=== PATIENT | male | born 1980 | race Caucasian/White ===

== ENCOUNTER 2016-12-14 11:28 | Emergency (ER) | payer SELFPAY ==
[~2016-12-14] VITALS: Ht 177.8 cm; Wt 68.0 kg
[~2016-12-14 11:28] MED LIST: NAPR-243 PO; TRAM-21 PO
--- OUTSIDE RECORDS SUMMARY | 2016-12-14 11:33 | XMS REPORT | Continuity Of Care Document ---
Author Author [facility] Organization [facility] Address [address] [facility] [place] [address] Phone Care Team Providers Care Double Bass Player Name Role Phone TORRIE KINNEY MD AT Results Lab Results Visit/Account #[id number] (July 21, 2016 1:09am - July 21, 2016 3:35am) Test Result Date/Time COMPLETE BLOOD COUNT WHITE BLOOD COUNT(4.0-11.0 10E3/UL) 7.3 10E3/UL July 21, 2016 1:10am RED BLOOD COUNT(4.50-5.90 10E6/UL) 4.71 10E6/UL July 21, 2016 1:10am HEMOGLOBIN(13.5-17.5 G/DL) 15.0 G/DL July 21, 2016 1:10am HEMATOCRIT(41.0-53.0 %) 43.9 % July 21, 2016 1:10am MEAN CORPUSCULAR VOLUME(82.0-100.0 FL) 93.2 FL July 21, 2016 1:10am MEAN CORPUSCULAR HEMOGLOBIN(26.0-34.0 PG) 31.8 PG July 21, 2016 1:10am MEAN CORPUSCULAR HGB CONC(31.5-36.5 G/DL) 34.2 G/DL July 21, 2016 1:10am RED CELL DISTRIBUTION WIDTH(11.5-14.5 %) 12.9 % July 21, 2016 1:10am 777-3: PLATELET COUNT(150-450 10E3/UL) 279 10E3/UL July 21, 2016 1:10am MEAN PLATELET VOLUME(8.2-12.4 FL) 10.0 FL July 21, 2016 1:10am NUCLEATED RBCS (AUTO)(0-0 %) 0 % July 21, 2016 1:10am COMPLETE METABOLIC PROFILE GLUCOSE(70-110 MG/DL) 106 MG/DL July 21, 2016 1:10am BLOOD UREA NITROGEN(6-20 MG/DL) 20 MG/DL July 21, 2016 1:10am CREATININE(0.50-1.20 MG/DL) 0.68 MG/DL July 21, 2016 1:10am EST GLOMERULAR FILTRATION RATE(Greater than or equal to 60) Greater than or equal to 60 Result Comments: If the patient is of -Turkmen descent/extraction multiply the eGFR value by 1.212 to obtain the actual eGFR. >=60 mg/dL Normal 30-59 mg/dL Moderate Kidney Disease 15-29 mg/dL Severe Kidney Disease <15 mg/dL Kidney Failure July 21, 2016 1:10am BUN CREATININE RATIO(10.0-20.0 RATIO) 29.0 RATIO July 21, 2016 1:10am SODIUM(135-145 MMOL/L) 137 MMOL/L July 21, 2016 1:10am POTASSIUM(3.6-5.0 MMOL/L) 4.0 MMOL/L July 21, 2016 1:10am CHLORIDE(101-111 MMOL/L) 104 MMOL/L July 21, 2016 1:10am CO2(21-31 MMOL/L) 22 MMOL/L July 21, 2016 1:10am ANION GAP(8-18) 15 July 21, 2016 1:10am OSMO CALCULATED(270.0-290.0) 276.9 July 21, 2016 1:10am CALCIUM(8.5-10.5 MG/DL) 9.1 MG/DL July 21, 2016 1:10am BILIRUBIN,TOTAL(0.1-1.2 MG/DL) 1.0 MG/DL July 21, 2016 1:10am ALKALINE PHOSPHATASE(42-121 IU/L) 77 IU/L July 21, 2016 1:10am ASPARTATE AMINO TRANSFERASE(10-42 IU/L) 41 IU/L July 21, 2016 1:10am ALANINE AMINOTRANSFERASE(10-60 IU/L) 21 IU/L July 21, 2016 1:10am TOTAL PROTEIN(6.4-8.2 G/DL) 8.0 G/DL July 21, 2016 1:10am ALBUMIN(3.5-5.5 G/DL) 4.5 G/DL July 21, 2016 1:10am GLOBULIN(2.4-3.6) 3.5 July 21, 2016 1:10am ALBUMIN/GLOBULIN RATIO(0.9-1.8 RATIO) 1.3 RATIO July 21, 2016 1:10am TOTAL CPK TOTAL CPK(22-269 IU/L) 682 IU/L July 21, 2016 1:10am ALCOHOL ALCOHOL(0.0-5.0 MG/DL) Less than 5.0 MG/DL July 21, 2016 1:10am Allergies and Adverse Reactions Allergies and Adverse Reactions Patient Unit Number: [id number] Agent Type Reaction Severity Status KETOROLAC Drug Allergy Unknown Unknown Active Problem List Problem List Patient Unit Number: [id number] Chronic Problems: Code/Condition Comments Documented Start Date Documented Resolved Date Code (s) 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 Avoid drug use or taking more medications than as directed. Return if symptoms worsen, if new symptoms develop, or for any other concerns. Vital Signs Vital Signs Visit/Account #[id number] (July 21, 2016 1:09am - July 21, 2016 3:35am) Sign First Result Last Result Code(s) Temperature in Fahrenheit Temperature (Fahrenheit): 98.4 [degF] On July 21, 2016 1:05am Temperature (Fahrenheit): 98.0 [degF] On July 21, 2016 3:30am 8310-5 Body Temperature Weight in Kilograms Weight (Kilograms): 66.4000 kg On July 21, 2016 1:05am 3141-9 Weight Measured Functional Status Functional and Cognitive Status No Functional Status Data Medications Inpatient/Ordered Medications - Medications administered during hospital visit Visit/Account #[id number] (July 21, 2016 1:09am - July 21, 2016 3:35am) Medication Route Sig/Schedule Precondition/Indication Comments/Instructions Codes IV Medication Carriers: NORMAL SALINE(SODIUM CHLORIDE) 1000 ML INJECTION Dose: 1000 ML INTRAVEN .Q1H (Rate: 1000 MLS/HR Duration: 1 HR) Carriers: 1000 ML Sodium Chloride 9 MG/ML Injection (RxNorm): 9720558 NORMAL SALINE (SODIUM CHLORIDE) [facility]: [id number] History Of Encounters Encounters Visit/Account #[id number] (July 21, 2016 1:09am - July 21, 2016 3:35am) Account Status Physican Of Record Reason For Visit Visit Diagnosis Start Date/Time Stop Date/Time ER TORRIE KINNEY MD RACING THOUGHTS Not Available Jul 21, 2016 1:09am Jul 21, 2016 3:35am History of Procedures Procedure List No procedures recorded. Discharge Instructions Discharge Instructions Visit/Account #[id number] (July 21, 2016 1:09am - July 21, 2016 3:35am) DISCHARGE INSTRUCTIONS Physician Documentation Social History Social History No Social History Data. Immunizations Immunizations Patient Unit Number: [id number] Immunizations No immunizations recorded.
--- OUTSIDE RECORDS SUMMARY | 2016-12-14 11:33 | XMS REPORT | Continuity of Care Document ---
Author Author [facility] Organization [facility] Address [facility] [address] [place] [address] Phone Unavailable Support Name Relationship Address Phone KANDIS SHIN MD Caregiver [address] [place] [address] Unavailable AARON, MAGGIE Next Of Kin [address] [place], [place] [address] Insurance Providers Payer Name Policy Number Subscriber Name Relationship Self Pay Insurance [place]imitri [place] 18 Self / Same As Patient Advance Directives Directive Response Recorded Date/Time Advance Directives No 12/09/15 11:22am Living Will No 12/09/15 11:22am Health Care Proxy No 12/09/15 11:22am Power of Sales Program Manager for Health Care No 12/09/15 11:22am Organ, Tissue, or Eye Donor No 12/09/15 11:22am Do you have a signed organ donor card? No 12/09/15 11:22am Chief Complaint and Reason for Visit Chief Complaint BACK PAIN OR INJURY Reason for Visit [id number] Problems Active Problems Medical Problem Onset Date Status Lumbar spine pain Unknown Acute Medications Current Home Medications Medication Dose Units Route Directions Days/Qty Instructions Start Date No Known Medications 12/09/15 Methylprednisolone 4 Mg 4 Mg Oral As Directed 21 12/09/15 Social History No social history. Hospital Discharge Instructions No hospital discharge instructions. Plan of Care Discharge Date 12/09/15 1:05pm Condition at Discharge Stable Instructions/Education Provided Acute Low Back Pain (ED) Prescriptions See Medication Section Referrals Kamron Restrepo MD - 1 Week Additional Instructions/Education Follow up with primary care in 3-5 days. Return for weakness, changes in sensation, difficulty pooping or peeing, or new or concerning symptoms. Functional Status Query Response Date Recorded Motley Coma Scale Total 15 December 09, 2015 11:40am Patient Behavior Cooperative December 09, 2015 11:40am Allergies, Adverse Reactions, Alerts Allergen Type Severity Reaction Status Last Updated Hydrocodone Allergy Unknown Active 12/09/15 Ketorolac Allergy Unknown Active 12/09/15 Immunizations Name Given Type Hx Influenza Vaccination No Historical Hx Pneumococcal Vaccination No Historical Vital Signs Acute Vital Signs Vital Response Date/Time Temperature (Fahrenheit) 98.0 degrees F (97.6 - 99.5) 12/09/2015 1:05pm Temperature Source Temporal Artery 12/09/2015 1:05pm Pulse Rate (adult) 63 bpm (60 - 90) 12/09/2015 1:05pm Respiratory Rate 20 bpm (12 - 24) 12/09/2015 1:05pm Blood Pressure 127/76 mm Hg 12/09/2015 1:05pm O2 Sat by Pulse Oximetry 98 % (90 - 100) 12/09/2015 1:05pm Oxygen Delivery Method 12/09/2015 1:05pm Pain Location Body Site Modifier 12/09/2015 1:05pm Pain Description 12/09/2015 1:05pm Height 5 ft 10 in Weight 155 lb Body Mass Index 22.0 kg/m^2 Results Laboratory Results Test Name Result Units Flags Reference Collection Date/Time Result Date/ Time Comments Urine Color YELLOW YELLOW 12/09/2015 12:07pm 12/09/2015 12:13pm Urine Appearance CLEAR CLEAR 12/09/2015 12:07pm 12/09/2015 12:13pm Urine Glucose (UA) NEGATIVE mg/dL NEGATIVE 12/09/2015 12:07pm 2015 12:13pm Urine Bilirubin NEGATIVE NEGATIVE 12/09/2015 12:07pm 12/09/2015 12: 13pm Urine Ketones NEGATIVE mg/dL NEGATIVE 12/09/2015 12:07pm 12/09/2015 12: 13pm Urine Specific [place] 1.020 1.010-1.025 12/09/2015 12:07pm 2015 12:13pm Urine Occult Blood NEGATIVE NEGATIVE 12/09/2015 12:07pm 12/09/2015 12 :13pm Urine pH 7.0 5.0-8.0 12/09/2015 12:07pm 12/09/2015 12:13pm Urine Protein NEGATIVE mg/dL NEGATIVE 12/09/2015 12:07pm 12/09/2015 12: 13pm Urine Urobilinogen 0.2 mg/dL E.U./dL 0.2-1.0 12/09/2015 12:07pm 2015 12:13pm Urine Nitrate NEGATIVE NEGATIVE 12/09/2015 12:07pm 12/09/2015 12: 13pm Urine Leukocyte Esterase NEGATIVE NEGATIVE 12/09/2015 12:07pm 2015 12:13pm Urine RBC NEGATIVE /hpf 0 12/09/2015 12:07pm 12/09/2015 12:21pm Urine WBC 1-2 /hpf 0-4 12/09/2015 12:07pm 12/09/2015 12:21pm Urine Squamous Epithelial Cells NEGATIVE /hpf 0-1 12/09/2015 12:07pm 12:21pm Urine Bacteria TRACE NEGATIVE 12/09/2015 12:07pm 12/09/2015 12:21pm Urine Sperm FEW H NEGATIVE 12/09/2015 12:07pm 12/09/2015 12:21pm NON- MOTILE Procedures Procedure Status Date Provider(s) X-ray of cervical spine, two or three views Completed 12/09/15 KANDIS SHIN MD Encounters Encounter Location Arrival/Admit Date Discharge/Depart Date Attending Provider Departed Emergency Room [place] 12/09/15 11:28am 12/09/15 1:05pm KANDIS SHIN MD Recent Diagnosis
--- OUTSIDE RECORDS SUMMARY | 2016-12-14 11:33 | XMS REPORT | Continuity of Care Document ---
Author Author [facility] Organization [facility] Address [facility] [address] [place] [address] Phone Unavailable Support Name Relationship Address Phone AL GARRIDO MD Caregiver [address] [place] [address] MAGGIE WALKER Next Of Kin [address] [place] [address] Insurance Providers Payer Name Policy Number Subscriber Name Relationship Self Pay Insurance Saqib Barger 18 Self / Same As Patient Advance Directives Directive Response Recorded Date/Time Advance Directives No 12/09/15 11:22am Living Will No 12/09/15 11:22am Health Care Proxy No 01/24/16 11:38am Power of Fruit Tester for Health Care No 12/09/15 11:22am Organ, Tissue, or Eye Donor No 12/09/15 11:22am Do you have a signed organ donor card? No 12/09/15 11:22am Chief Complaint and Reason for Visit Chief Complaint HIT IN HEAD/HIT HEAD Reason for Visit [id number] Abrasion Problems Active Problems Medical Problem Onset Date Status Abrasion Unknown Acute Lumbar spine pain Unknown Acute Minor head injury Unknown Acute Medications Current Home Medications Medication Dose Units Route Directions Days/Qty Instructions Start Date No Known Medications 12/09/15 Methylprednisolone 4 Mg 4 Mg Oral As Directed 12/09/15 Mupirocin 22 Gm 22 Gm External Twice A Day 5 Days 01/24/16 Social History Social History Problem Response Recorded Date/Time Smoking Status Current every day smoker 01/24/2016 12:18pm Alcohol Use none 01/24/2016 12:18pm Drug Use marijuana amphetamines 01/24/2016 12:18pm Query Response Start Date Stop Date Smoking Status Current every day smoker Hospital Discharge Instructions No hospital discharge instructions. Plan of Care Discharge Date 01/24/16 12:23pm Condition at Discharge Stable Instructions/Education Provided Head Injury (ED) Abrasion (ED) Prescriptions See Medication Section Additional Instructions/Education return if your condition worsens or you develop concerning symptoms. otherwise, follow up with your doctor in 1-2 days. Functional Status Query Response Date Recorded Patient Behavior Anxious Cooperative January 24, 2016 11:43am Allergies, Adverse Reactions, Alerts Allergen Type Severity Reaction Status Last Updated Hydrocodone Allergy Unknown Active 12/09/15 Ketorolac Allergy Unknown Active 12/09/15 Immunizations Name Given Type Hx Diphtheria, Pertussis, Tetanus Vaccination Unknown Historical Hx Influenza Vaccination Y 2014 Historical Hx Pneumococcal Vaccination No Historical Hx Tetanus, Diphtheria Vaccination Yes Historical Hx Tetanus Toxoid Vaccination Yes Historical Vital Signs Acute Vital Signs Vital Response Date/Time Temperature (Fahrenheit) 98.2 degrees F (97.6 - 99.5) 01/24/2016 11:43am Temperature Source Temporal Artery 01/24/2016 11:43am Pulse Rate (adult) 78 bpm (60 - 90) 01/24/2016 12:23pm Respiratory Rate 22 bpm (12 - 24) 01/24/2016 12:23pm Blood Pressure 148/91 mm Hg 01/24/2016 12:23pm O2 Sat by Pulse Oximetry 98 % (90 - 100) 01/24/2016 12:23pm Oxygen Delivery Method 01/24/2016 12:23pm Pain Location Body Site Modifier 12/09/2015 1:05pm Pain Description 12/09/2015 1:05pm Height 5 ft 10 in Weight 160 lb Body Mass Index 22.0 kg/m^2 Results [...] 12/09/2015 12:07pm 12/09/2015 12: 13pm Urine Specific [place] 1.020 1.010-1.025 12/09/2015 12:07pm 2015 12:13pm Urine [...] of cervical spine, two or three views Active 12/09/15 KANDIS SHIN MD Encounters Encounter Location Arrival/Admit Date Discharge/Depart Date Attending Provider Departed Emergency Room [place] 01/24/16 11:39am 01/24/16 12:23pm AL GARRIDO MD Departed Emergency Room [place] 12/09/15 11:28am 12/09/15 1:05pm KANDIS SHIN MD Recent Diagnosis
--- OUTSIDE RECORDS SUMMARY | 2016-12-14 11:33 | XMS REPORT | Continuity Of Care Document ---
Author Author [facility] Organization [facility] Address [address] [facility] [place] [address] Phone Care Team Providers Care Arts And Crafts Instructor Name Role Phone MAULIK WHITNEY, MILEY AT NON STAFF, PROVIDER Unavailable Unavailable Results Results No results recorded. Allergies and Adverse Reactions Allergies and Adverse Reactions Patient Unit Number: [id number] Agent Type Reaction Severity Status KETOROLAC Drug Allergy Unknown Unknown Active Problem List Problem List Visit/Account #[id number] (July 05, 2015 11:07am - July 05, 2015 12:03pm) Acute Problems: Code/Condition Comments Documented Start Date Documented Resolved Date Code (s) Puncture wound ICD10: T14.8 Puncture wound ICD9: 879.8 Puncture wound SNOMED: 266311287 Puncture wound Cellulitis ICD10: L03.90 Cellulitis ICD9: 682.9 Cellulitis SNOMED: 548643351 Cellulitis Patient Unit Number: [id number] Chronic Problems: Code/Condition Comments Documented Start Date Documented Resolved Date Code (s) 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 Take antibiotics as prescribed. Apply warm compresses or soak in Epsom salts twice daily. Vital Signs Vital Signs Visit/Account #[id number] (July 05, 2015 11:07am - July 05, 2015 12:03pm) Sign First Result Last Result Code(s) Temperature in Fahrenheit Temperature (Fahrenheit): 98.6 [degF] On July 05, 2015 11:06am Temperature (Fahrenheit): 98.2 [degF] On July 05, 2015 12:03pm 8310-5 Body Temperature Weight in Kilograms Weight (Kilograms): 59.6 kg On July 05, 2015 11:06am 3141-9 Weight Measured 78330-3 Body weight measured in kilograms Functional Status Functional and Cognitive Status No Functional Status Data Medications Discharge Medications - Medications that patient should continue to take. Review with physician Visit/Account #[id number] (July 05, 2015 11:07am - July 05, 2015 12:03pm) Medication Route Sig/Schedule Precondition/Indication Comments/Instructions Codes Bactrim Ds(TRIMETHOPRIM/SULFAMETHOXAZOLE) 1 EACH TABLET Dose: 2 TAB ORAL TWICE A DAY Sulfamethoxazole 800 MG / Trimethoprim 160 MG Oral Tablet [Bactrim] (RxNorm): 629018 Bactrim Ds (TRIMETHOPRIM/SULFAMETHOXAZOLE) NDC: 99486894725 KEFLEX(CEPHALEXIN MONOHYDRATE) 500 MG CAPSULE Dose: 500 MG ORAL EVERY 6 HOURS Cephalexin 500 MG Oral Capsule (RxNorm): 521324 KEFLEX (CEPHALEXIN MONOHYDRATE) NDC: 01079390057 History Of Encounters Encounters Visit/Account #[id number] (July 05, 2015 11:07am - July 05, 2015 12:03pm) Account Status Physican Of Record Reason For Visit Visit Diagnosis Start Date/Time Stop Date/Time ER MILEY WILLINGHAM MD R HAND SPLINTER S61.432A: PUNCTURE WOUND W/O FOREIGN BODY OF LEFT HAND, INIT ENCNTR ICD10 Jul 05, 2015 11:07am Jul 05, 2015 12:03pm History of Procedures Procedure List No procedures recorded. Discharge Instructions Discharge Instructions Visit/Account #[id number] (July 05, 2015 11:07am - July 05, 2015 12:03pm) DISCHARGE INSTRUCTIONS Physician Documentation Social History Social History No Social History Data. Immunizations Immunizations Patient Unit Number: [id number] Immunizations No immunizations recorded.
--- OUTSIDE RECORDS SUMMARY | 2016-12-14 11:33 | XMS REPORT | Continuity Of Care Document ---
Author Author [facility] Organization [facility] Address [address] [facility] [place] [address] Phone Care Team Providers Care Truck Cleaner Name Role Phone TORRIE KINNEY MD AT Results Results No results recorded. Allergies and Adverse Reactions Allergies and Adverse Reactions Patient Unit Number: [id number] Agent Type Reaction Severity Status KETOROLAC Drug Allergy Unknown Unknown Active Problem List Problem List Visit/Account #[id number] (August 01, 2014 7:43pm - August 01, 2014 8:42pm) Acute Problems: Code/Condition Comments Documented Start Date Documented Resolved Date Code (s) Pain due to dental caries ICD10: K02.9 Pain due to dental caries ICD9: 521.00 Pain due to dental caries SNOMED: 13915200 Pain due to dental caries Pain, dental ICD10: K08.8 Toothache ICD9: 525.9 Toothache SNOMED: 43385661 Toothache Patient Unit Number: [id number] Chronic Problems: Code/Condition Comments Documented Start Date Documented Resolved Date Code (s) 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 Take the ultram and penicillin as directed. Return to the E.D. as needed. Avoid hot and cold extremes. Do NOT smoke or suck on straws. Vital Signs Vital Signs Visit/Account #[id number] (August 01, 2014 7:43pm - August 01, 2014 8:42pm) Sign First Result Last Result Code(s) Body Mass Index Body Mass Index (BMI): 20.0 kg/m2 On August 01, 2014 7:42pm 49232-8 BMI (body mass index) Body Mass Index as a Calculated Value 21.0 kg/m2 On August 01, 2014 7:42pm 50388-9 BMI (body mass index) Body Surface Area as a Calculated Value 1.87 m2 On August 01, 2014 7:42pm 3140-1 BSA (body surface area) Height (Feet/Inches) 5 [ft_us] 11 [in_us] On August 01, 2014 7:42pm Temperature in Fahrenheit Temperature (Fahrenheit): 98.4 [degF] On August 01, 2014 7:42pm Temperature (Fahrenheit): 98.6 [degF] On August 01, 2014 8:41pm 8310-5 Body Temperature Weight in Kilograms Weight (Kilograms): 68.18 kg On August 01, 2014 7:42pm 3141-9 Weight Measured 66429-6 Body weight measured in kilograms Functional Status Functional and Cognitive Status No Functional Status Data Medications Discharge Medications - Medications that patient should continue to take. Review with physician Visit/Account #[id number] (August 01, 2014 7:43pm - August 01, 2014 8:42pm) Medication Route Sig/Schedule Precondition/Indication Comments/Instructions Codes Penicillin V Potassium(PENICILLIN V POTASSIUM) 500 MG TAB Dose: 500 MG ORAL 4 TIMES DAILY Penicillin V Potassium 500 MG Oral Tablet (RxNorm): 178100 Penicillin V Potassium (PENICILLIN V POTASSIUM) NDC: 88538451873 ULTRAM(TraMADol HCL) 50 MG TABLET Dose: 1-2 TAB ORAL EVERY 4 HOURS PAIN tramadol hydrochloride 50 MG Oral Tablet [Ultram] (RxNorm): 542871 ULTRAM (TraMADol HCL) NDC: 59180888483 History Of Encounters Encounters Visit/Account #[id number] (August 01, 2014 7:43pm - August 01, 2014 8:42pm) Account Status Physican Of Record Reason For Visit Visit Diagnosis Start Date/Time Stop Date/Time ER TORRIE KINNEY MD JAW INJURY Not Available Aug 01, 2014 7:43pm Aug 01, 2014 8:42pm History of Procedures Procedure List No procedures recorded. Discharge Instructions Discharge Instructions Visit/Account #[id number] (August 01, 2014 7:43pm - August 01, 2014 8:42pm) DISCHARGE INSTRUCTIONS Physician Documentation Social History Social History No Social History Data. Immunizations Immunizations Patient Unit Number: [id number] Immunizations No immunizations recorded.
--- NOTE | 2016-12-14 12:47 | ED Integumentary General ---
General Chief Complaint: Skin/Wound Problems Stated Complaint: WOUND REDNESS/PAIN R SIDE CHEST Nursing Triage Note: PT REPORTS ABSCESS TO R CHEST. Source: patient Exam Limitations: no limitations History of Present Illness Time seen by provider: 12:47 Initial Comments 36-year-old male patient presents to the emergency department complaints of an abscess to the right chest and right arm. Patient states he was working outside several days ago and "got poked by a whole bunch of times by something. " Patient reports the right chest abscess causes "severe pain." Patient reports having history of infected cysts. Patient denies having a PCP. Timing/Duration: getting worse, other (3-4 days) Location: torso (right chest), extremities (right arm) Possible Cause: other ("poked a whole bunch of times by something" while working outside) Modifying Factors: worse with other (worse with palpation) Associated Symptoms: No blisters, No change in skin texture, No fever, No headache, No hives, No nasal congestion, No rash, No sore throat, swelling/mass/ lumps ((see HPI)) Allergies and Home Medications Allergies Coded Allergies: hydrocodone (Unverified Allergy, Unknown, 01/05/14) ketorolac (Unverified Allergy, Unknown, 01/05/14) Constitutional: no symptoms reported Respiratory: no symptoms reported Cardiovascular: no symptoms reported Gastrointestinal: no symptoms reported Musculoskeletal: no symptoms reported Skin: see HPI Psychiatric/Neurological: No Symptoms Reported All Other Systems Reviewed Negative Unless Noted: Yes (Negative excepted noted.) Past Tdkcong-Jqcofs-Hwofjc Hx Patient Social History Alcohol Use: Denies Use Recreational Drug Use: Yes Drug of Choice: METHAMPHETAMINES AND MARIJUANA Smoking Status: Current Everyday Smoker Type Used: Cigarettes 2nd Hand Smoke Exposure: No Recent Foreign Travel: No Contact w/Someone Who Travel: No Recent Infectious Disease Expo: No Physical Abuse: No Sexual Abuse: No Immunizations Up To Date Tetanus Booster (TDap): Less than 5yrs Surgeries History of Surgeries: Yes (r arm) Surgeries: Orthopedic Respiratory History of Respiratory Disorde: No Cardiovascular History of Cardiac Disorders: No Neurological History of Neurological Disord: No Reproductive System Hx Reproductive Disorders: No Sexually Transmitted Disease: No Gastrointestinal History of Gastrointestinal Di: No Musculoskeletal History of Musculoskeletal Dis: No Endocrine History of Endocrine Disorders: No Cancer History of Cancer: No Psychosocial History of Psychiatric Problem: Yes (hyper explosive) Behavioral Health Disorders: Bipolar, Schizophrenia Suicide Risk Score: 0 Integumentary History of Skin or Integumenta: No Blood Transfusions History of Blood Disorders: No Reviewed Nursing Assessment Reviewed/Agree w Nursing PMH: Yes Family Medical History Significant Family History: No Pertinent Family Hx Physical Exam Vital Signs Vital Sign - Last 12Hours 12/14/16 12:31 Temp 97.1 Pulse 99 Resp 16 B/P (MAP) 119/103 Pulse Ox 97 O2 Delivery Room Air Capillary Refill : Less Than 3 Seconds General Appearance: WD/WN, no apparent distress Cardiovascular: normal peripheral pulses, regular rate, rhythm, no murmur Respiratory: lungs clear, normal breath sounds, no respiratory distress, no accessory muscle use, other (rt anterior chest wall shows multiple scabs with a 1.5x2 cm area of erythema, induration, and tenderness. Patient is noted to squeeze on the area multiple times during the exam w/o wincing; however, when this examiner palpates the area patient has an exaggerated pain response to palpation.) Gastrointestinal: non tender, soft, No distended Extremities: normal range of motion, normal capillary refill, other (multiple scabs noted on the bilateral upper extremities. There are several sebaceous cysts noted on the posterior right arm with a pustule on the rt posterior arm ( just above the elbow) showing a 05.x0.5 cm area of erythema and tenderness. ) Neurologic/Psychiatric: no motor/sensory deficits, alert, normal mood/affect, oriented x 3 Skin: normal color, warm/dry, other ((see chest and extremity exam above)) Skin Problem Location: upper extremities (rt posterior arm) Skin Problem Character: abscess (pustule noted on the rt posterior distal arm.) , erythema, swelling, tenderness Progress/Results/Core Measures Results/Orders Vital Signs/I&O Vital Sign - Last 12Hours 12/14/16 12:31 Temp 97.1 Pulse 99 Resp 16 B/P (MAP) 119/103 Pulse Ox 97 O2 Delivery Room Air Blood Pressure Mean: 108 Departure Impression Impression: Primary Impression: Cellulitis of chest wall Additional Impression: Abscess of upper extremity Disposition: 01 HOME, SELF-CARE Condition: Improved Departure-Patient Inst. Decision time for Depature: 13:14 Referrals: NO,LOCAL PHYSICIAN (PCP/Family) Primary Care Physician Patient Instructions: Cellulitis (Skin Infection), Adult (DC), Skin Abscess Add. Discharge Instructions: All discharge instructions reviewed with patient and/or family. Voiced understanding. Medications as instructed. Tylenol extra strength over-the- counter as directed for pain. Shower with antibacterial soap. Follow-up with the family practitioner of your choice for recheck in the next 2-3 days. Call Thursday morning for appointment time. Return to the emergency department for worsened symptoms or any other concerns. Scripts Sulfamethoxazole/Trimethoprim (Bactrim Ds Tablet) 1 Each Tablet 1 EACH PO UD, #15 TAB 0 Refills 2 tabs po x1 dose, then 1 tab po BID x7d Prov: DOTTIE HADLEY 12/14/16 Work/School Note: [employer] DOTTIE HADLEY Dec 14, 2016 12:47
[2016-12-14] MEDS ORDERED: SULF1TAB35 PO (13:17)
[2016-12-14 13:26] VITALS: BP 119/103
== END 2016-12-14 13:26 | disposition home or self-care (01) ==
LOC: EDUNIT# 11:28 → ER 11:31
DX: L03.313 Cellulitis of chest wall (principal); L02.413 Cutaneous abscess of right upper limb; F15.10 Other stimulant abuse, uncomplicated; F12.10 Cannabis abuse, uncomplicated; F17.210 Nicotine dependence, cigarettes, uncomplicated; F31.9 Bipolar disorder, unspecified; F20.9 Schizophrenia, unspecified
CPT/HCPCS: 87070; 87077; 87186; 87205; 99283

== ENCOUNTER 2017-02-03 20:47 | Emergency (ER) | payer SELFPAY ==
[~2017-02-03] VITALS: Ht 177.8 cm; Wt 72.6 kg
[~2017-02-03 20:47] MED LIST changes: +SULF1TAB35 PO
[2017-02-03 21:08] LABS: BASOPHILS % (AUTO) 0 % (0-10); EOSINOPHILS # (AUTO) 0.2 10^3/uL (0.0-0.3); EOSINOPHILS % (AUTO) 2 % (0-10); LYMPHOCYTES # (AUTO) 2.7 X 10^3 (1.0-4.0); LYMPHOCYTES % (AUTO) 30 % (12-44); MEAN CORPUSCULAR HEMOGLOBIN 32 PG (25-34); MEAN CORPUSCULAR HGB CONC 34 G/DL (32-36); MEAN CORPUSCULAR VOLUME 94 FL (80-99); MEAN PLATELET VOLUME 10.3 FL (7.4-10.4); MONOCYTES # (AUTO) 0.9 X 10^3 (0.0-1.0); MONOCYTES % (AUTO) 10 % (0-12); NEUTROPHILS # (AUTO) 5.1 X 10^3 (1.8-7.8); NEUTROPHILS % (AUTO) 58 % (42-75); PLATELET COUNT 239 10^3/uL (130-400); RED CELL DISTRIBUTION WIDTH 12.8 % (10.0-14.5); WHITE BLOOD COUNT 8.8 10^3/uL (4.3-11.0)
[2017-02-03 21:11] LABS: INR 0.9 (0.8-1.4); PROTHROMBIN TIME PATIENT 12.3 SEC (12.2-14.7)
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
--- NOTE | 2017-02-03 21:15 | Diagnostic Imaging Report ---
INDICATION: Chest pain and shortness of breath. FINDINGS: Portable chest shows the lungs to be well-aerated without air trapping. There are no infiltrates or masses. Heart is not enlarged. No hilar adenopathy. No pneumothorax or pleural effusions. No bony abnormalities. IMPRESSION: Normal portable chest. Dictated by: Dictated on workstation # [id number]
[2017-02-03 21:23] LABS: ALANINE AMINOTRANSFERASE 14 U/L (0-55); ALBUMIN 3.9 GM/DL (3.2-4.5); ALCOHOL < 10 MG/DL (<10); AMYLASE 41 U/L (25-125); ANION GAP 12 MMOL/L (5-14); ASPARTATE AMINO TRANSFERASE 21 U/L (5-34); BILIRUBIN,TOTAL 0.2 MG/DL (0.1-1.0); BLOOD UREA NITROGEN 14 MG/DL (7-18); BUN/CREATININE RATIO 17; CALCIUM 8.9 MG/DL (8.5-10.1); CARBON DIOXIDE 22 MMOL/L (21-32); CHLORIDE 106 MMOL/L (98-107); CREATININE SERUM 0.82 MG/DL (0.60-1.30); GFR ESTIMATED > 60; GLUCOSE 123 MG/DL (70-105); LIPASE 24 U/L (8-78); MAGNESIUM 2.2 MG/DL (1.8-2.4); POTASSIUM 3.8 MMOL/L (3.6-5.0); SODIUM 140 MMOL/L (135-145)
[2017-02-03 21:29] LABS: TROPONIN I < 0.30 NG/ML (<0.30)
[2017-02-03] MEDS ORDERED: SULF1TAB35 PO (21:51)
[2017-02-03] MEDS ORDERED: MUPI15CR TP (21:51)
[2017-02-03 21:53] LABS: BILIRUBIN,URINE NEGATIVE (NEGATIVE); KETONES,URINE NEGATIVE (NEGATIVE); LEUKOCYTE ESTERASE ,URINE 1+ (NEGATIVE); NITRITE,URINE NEGATIVE (NEGATIVE); PH,URINE 6 (5-9); PROTEIN,URINE NEGATIVE (NEGATIVE); SQUAMOUS EPITHELIAL CELL,UR 0-2 /HPF; UROBILINOGEN,URINE 4 MG/DL (NORMAL)
[2017-02-03 21:55] VITALS: BP 117/86
[2017-02-04] MEDS ORDERED: inSUlin (REGULAR) HUMAN 1 UNIT/0.01 ML (CHARGE PER UNIT) IV ONE (01:45)
== END 2017-02-03 21:55 | disposition home or self-care (01) ==
LOC: ER 20:47
DX: L02.413 Cutaneous abscess of right upper limb (principal); R07.9 Chest pain, unspecified; F12.10 Cannabis abuse, uncomplicated; F15.10 Other stimulant abuse, uncomplicated; F31.9 Bipolar disorder, unspecified; F20.9 Schizophrenia, unspecified; F17.210 Nicotine dependence, cigarettes, uncomplicated
CPT/HCPCS: 36415; 71010; 80053; 80306; 80320; 81000; 82150; 83690; 83735; 83880; 84484; 85025; 85610; 85730; 93005; 93041